=== PATIENT | female | born 1985 | race Caucasian/White ===

== ENCOUNTER 2024-11-29 13:13 | Emergency (ER) | payer OTHER, SELFPAY ==
[2024-11-29] VITALS (21 sets, daily range): BP systolic 104–130; BP diastolic 70–81; BMI 23.3
[2024-11-29 13:34] LABS: % Basophils 0.4 % (0-2); % Eosinophils 0.1 % (0-6); % Immature Granulocytes 0.5 % (0-0.5); % Lymphocytes 6.6 % (20.5-51.1); % Monocytes 4.8 % (1.7-9.3); % Neutrophils 87.6 % (42.2-75.2); Absolute Basophils 0.1 10^3/uL (0-0.2); Absolute Immature Granulocytes 0.1 10^3/uL (0-0.05); Absolute Lymphocytes 1.4 10^3/uL (1.2-3.4); Absolute Monocytes 1.1 10^3/uL (0.1-0.6); Absolute Neutrophils 19.1 10^3/uL (1.4-6.5); Hematocrit 45.3 % (37.0-47.0); Hemoglobin 15.5 g/dL (12.0-16.0); Mean Corp Hgb Conc. 34.2 g/dL (33.0-37.0); Mean Corpuscular Hgb 28.8 pg (27.0-31.0); Mean Corpuscular Volume 84.2 fL (81.0-99.0); Mean Platelet Volume 10.1 fL (7.4-10.4); Nucleated Red Blood Cells % 0 %; Platelet Count 422 10^3/uL (130-400); Red Blood Cell Count 5.38 10^6/uL (4.20-5.40); Red Cell Dist. Width 13.9 % (11.5-14.5); White Blood Cell Count 21.8 10^3/uL (4.8-10.8)
[2024-11-29 13:47] LABS: HCG, Serum Qualitative Screen Negative
[2024-11-29 13:52] LABS: ALT (SGPT) 18 U/L (0-35); AST (SGOT) 21 U/L (14-36); Albumin 5.5 g/dl (3.5-5.0); Alkaline Phosphatase 128 U/L (38-126); Blood Urea Nitrogen 19 mg/dl (7-17); Calcium 10.5 mg/dl (8.4-10.2); Carbon Dioxide 26 mmol/L (22-30); Chloride 104 mmol/L (98-107); Glucose 123 mg/dl (70-99); Potassium 4.5 mmol/L (3.5-5.1); Sodium 143 mmol/L (135-145); Total Bilirubin 1.3 mg/dl (0.2-1.3); Total Protein 9.4 g/dl (6.3-8.2); eGFR > 60.00
[2024-11-29] MEDS: CATAPRES 0.2 MG PO (15:15)
[2024-11-29] MEDS: ZOFRAN 4 MG IV (15:15)
[2024-11-29] MEDS: NSS 1000 IV (15:15)
[2024-11-29] MEDS: ATIVAN 2 MG IV (15:15)
--- NOTE | 2024-11-29 18:38 | EDRN ---
Alanis Cox (pts mother) can be reached @ cell #
--- NOTE | 2024-11-29 18:38 | ED.GENMED ---
History of Present Illness
<Scott Harden PA-C - Last Filed: 11/30/24 08:44>
General
Chief Complaint: Withdrawal Symptoms
Time Seen by Provider: 11/29/24 14:56
History of Present Illness
History of Present Illness:
39-year-old female with history of polysubstance abuse presents to the emergency department for evaluation of withdrawal symptoms. States she used heroin yesterday and then this morning at the direction of an online clinician began using Suboxone,
estimates she took approximately 12 mg of Suboxone. After taking the Suboxone she began with chills, sweats, diarrhea, nausea, and vomiting. Denies any other substance abuse today. Denies SI or HI. She is willing to talk to [facility]
Past History
<Scott Harden PA-C - Last Filed: 11/30/24 08:44>
Past History
ED Past Medical History: None, Other, Other and Other
ED Past Surgical History: None
Social History
Tobacco: Smoker
Personal:
Living: with family
Review of Systems
<Scott Harden PA-C - Last Filed: 11/30/24 08:44>
Review of Systems
Allergies reviewed?: Yes
All Other Systems: ROS reviewed and negative except as documented in HPI and ROS
Phy Exam
<Scott Harden PA-C - Last Filed: 11/30/24 08:44>
Physical Exam
Physical Exam:
GEN: Ill-appearing, tremulous, diaphoretic
HEENT: Oral mucosa moist, no scleral icterus
Cardiac: Regular rate and rhythm, no murmur
Lung: No respiratory distress, no tachypnea, lungs clear to auscultation bilaterally
MSK: No gross deformity or injuries
Skin: Good color, no pallor or jaundice, no rashes
Neuro: AO x3, moves all extremities freely
Psych: Calm, cooperative
Course
<Scott Harden PA-C - Last Filed: 11/30/24 08:44>
Orders/Labs/Results
Orders:
Orders
11/29/24 13:23
Test Result ONCE
11/29/24 13:26
CBC/With Diff [Complete Blood Count/With Diff] Urgent
Comprehensive Metabolic Panel Urgent
HCG, Serum Qualitative Screen Urgent
11/29/24 15:12
0.9% Sodium Chloride 1000 ml [Nss] 1,000 ml IV BOLUS
Clonidine [Catapres] 0.2 mg PO NOW STA
Lorazepam [Ativan] 2 mg IV NOW STA
Ondansetron Injectable [Zofran] 4 mg IV NOW STA
Abnormal Lab Results
11/29/24
13:26
WBC 21.8 H 10^3/uL
(4.8-10.8)
Plt Count 422 H 10^3/uL
(130-400)
Abs Immat Gran (auto) 0.1 H 10^3/uL
(0-0.05)
Absolute Neuts (auto) 19.1 H 10^3/uL
(1.4-6.5)
Absolute Monos (auto) 1.1 H 10^3/uL
(0.1-0.6)
Neutrophils % 87.6 H %
(42.2-75.2)
Lymphocytes % 6.6 L %
(20.5-51.1)
BUN 19 H mg/dl
(7-17)
Glucose 123 H mg/dl
(70-99)
Calcium 10.5 H mg/dl
(8.4-10.2)
Alkaline Phosphatase 128 H U/L
(38-126)
Total Protein 9.4 H g/dl
(6.3-8.2)
Albumin 5.5 H g/dl
(3.5-5.0)
11/29/24 13:26
11/29/24 13:26
Vital Signs
Initial and Last Documented VS:
Initial Vital Signs
Temp Pulse Resp BP Pulse Ox
98.2 F 79 16 113/76 99
11/29/24 13:19 11/29/24 13:19 11/29/24 13:19 11/29/24 13:19 11/29/24 13:19
Last Documented Vital Signs
Temp Pulse Resp BP Pulse Ox
98.5 F 74 16 114/74 99
11/29/24 18:00 11/29/24 23:51 11/29/24 23:51 11/29/24 23:51 11/29/24 23:51
[place];Parisa Ornelas PA-C - Last Filed: 11/29/24 23:27>
Orders/Labs/Results
Orders:
Orders
11/29/24 13:23
Test Result ONCE
11/29/24 13:26
CBC/With Diff [Complete Blood Count/With Diff] Urgent
Comprehensive Metabolic Panel Urgent
HCG, Serum Qualitative Screen Urgent
11/29/24 15:12
0.9% Sodium Chloride 1000 ml [Nss] 1,000 ml IV BOLUS
Clonidine [Catapres] 0.2 mg PO NOW STA
Lorazepam [Ativan] 2 mg IV NOW STA
Ondansetron Injectable [Zofran] 4 mg IV NOW STA
Abnormal Lab Results
11/29/24
13:26
WBC 21.8 H 10^3/uL
(4.8-10.8)
Plt Count 422 H 10^3/uL
(130-400)
Abs Immat Gran (auto) 0.1 H 10^3/uL
(0-0.05)
Absolute Neuts (auto) 19.1 H 10^3/uL
(1.4-6.5)
Absolute Monos (auto) 1.1 H 10^3/uL
(0.1-0.6)
Neutrophils % 87.6 H %
(42.2-75.2)
Lymphocytes % 6.6 L %
(20.5-51.1)
BUN 19 H mg/dl
(7-17)
Glucose 123 H mg/dl
(70-99)
Calcium 10.5 H mg/dl
(8.4-10.2)
Alkaline Phosphatase 128 H U/L
(38-126)
Total Protein 9.4 H g/dl
(6.3-8.2)
Albumin 5.5 H g/dl
(3.5-5.0)
11/29/24 13:26
11/29/24 13:26
Vital Signs
Initial and Last Documented VS:
Initial Vital Signs
Temp Pulse Resp BP Pulse Ox
98.2 F 79 16 113/76 99
11/29/24 13:19 11/29/24 13:19 11/29/24 13:19 11/29/24 13:19 11/29/24 13:19
Last Documented Vital Signs
Temp Pulse Resp BP Pulse Ox
98.5 F 74 16 114/74 99
11/29/24 18:00 11/29/24 23:51 11/29/24 23:51 11/29/24 23:51 11/29/24 23:51
<Scott Harden PA-C - Last Filed: 11/30/24 08:44>
MDM/Problems Addressed
MDM/Problems Addressed:
Patient's symptoms abruptly resolved after treatment in the ED. She will be seen by [facility] representative for placement considerations. No need for crisis.
<Parisa Ornelas PA-C - Last Filed: 11/29/24 23:27>
*Critical Care Note
Total Time (30-74mins, 75-104mins- exclusive of procedures): Not Applicable
<Parisa Ornelas PA-C - Last Filed: 11/29/24 23:27>
Update Note
Update Note:
Received patient in sign out awaiting KYLIE assessment. Patient ultimately evaluated by KYLIE and was accepted at [facility]. Patient medically cleared for rehab placement. Case signed out to Ed [facility] awaiting transportation.
ED Attending Note
<Scott Harden PA-C - Last Filed: 11/30/24 08:44>
-
Portions of this chart may have been created with voice recognition software.� Occasional wrong word or��sound alike� substitutions may have occurred due to the inherent limitations of voice recognition software.
Discharge Plan
Departure
Patient Disposition: Home (Routine Discharge)
Date of Disposition: 11/29/24
Time of Disposition: 23:09
Patient with high blood pressure during this ER visit?: No
Discharge Problem:
Opiate withdrawal
Instructions: Drug Misuse and Addiction (DC)
Prescriptions:
No Action
ibuprofen 600 MG tablet
600 mg PO Q4HPRN PRN (Reason: moderate pain/cramps) Qty: 0 0RF
Referrals:
UNKNOWN - PT DOES,NOT KNOW [Family Provider] -
Activity Restrictions/Additional Instructions:
You are medically cleared for rehab at [facility].
Interventions
Interventions:
*Risk Screen - Suicide Last Done: 11/29/24 13:19
*General Assessment Last Done: 11/29/24 15:04
*Neglect/Abuse Screening Last Done: 11/29/24 13:19
*ED- Fall Risk Assessment Last Done: 11/29/24 15:04
*Nursing Disposition Last Done: 11/29/24 23:51
ED- Neurological Assessment Last Done: 11/29/24 15:04
ED-Psychological Assessment Last Done: 11/29/24 15:04
Discharge Date and Time
Discharge Date/Time: 11/30/24 00:21
Print Language: BOLIVIAN
--- NOTE | 2024-11-29 19:20 | EDRN ---
[facility] attempted to evaluate for placement, pt unable to stay awake for evaluation, [facility] will return later.
== END 2024-11-30 00:21 | disposition home or self-care (01) ==
LOC: EMR 13:13
PROVIDERS: Emergency Medicine; EMERGENCY PHYSICIAN Emergency Medicine
DX: F11.23 Opioid dependence with withdrawal (principal); F17.200 Nicotine dependence, unspecified, uncomplicated
CPT/HCPCS: 99284; 96374; 96375; 96361; 80053; 84703; 85025